=== PATIENT | male | born 1960 | race Two or more races ===

== ENCOUNTER 2020-02-13 07:48 | Outpatient (REF) | payer MEDICARE, MEDICAID, SELFPAY | END 2020-02-13 07:49 | disposition home or self-care (01) | LOC: HO.LAB 07:48 | PROVIDERS: Visit Provider Internal Medicine | DX: Z20.828 Contact with and (suspected) exposure to other viral communicable diseases (principal) | CPT/HCPCS: 87635 ==

== ENCOUNTER 2020-03-13 09:09 | Outpatient (REF) | payer MEDICARE, MEDICAID, SELFPAY | END 2020-03-13 09:10 | disposition home or self-care (01) | LOC: HO.LAB 09:09 | PROVIDERS: Visit Provider Internal Medicine | DX: Z20.828 Contact with and (suspected) exposure to other viral communicable diseases (principal) | CPT/HCPCS: C9803; U0003 ==